=== PATIENT | male | born 1985 | race Caucasian/White ===

== ENCOUNTER 2017-06-13 12:17 | Emergency (ER) | payer OTHER ==
[~2017-06-13] VITALS: Ht 170.2 cm; Wt 83.9 kg
[2017-06-13] MEDS ORDERED: SODIUM CHLORIDE 0.9% 1,000 ML IV ONE ×2 (12:42)
[2017-06-13 13:15] LABS: Basophils # (auto) 0 uL; Basophils % (auto) 0.4 % (0.0-2.0); CONDITION Y; Eosinophils # (auto) 0.1 uL; Eosinophils % (auto) 0.7 % (0.0-7.0); Hemoglobin 15.8 g/dL (13.5-17.5); Lymphocytes # (auto) 3.9 uL; Lymphocytes % (auto) 34.5 % (10.0-50.0); Mean Corpuscular Hemoglobin 32.6 pg (28.0-32.0); Mean Corpuscular Hgb Conc. 35.2 g/dL (32.0-36.0); Mean Corpuscular Volume 92.5 fL (80.0-100.0); Mean Platelet Volume 9.6 fL (7.4-10.4); Monocytes # (auto) 0.4 uL; Monocytes % (auto) 3.8 % (0.0-12.0); Neutrophils # (auto) 6.9 uL; Neutrophils % (auto) 60.6 % (37.0-80.0); Platelet Count (auto) 263 10^3/uL (140-450); Red Cell Distribution Width 12.6 % (11.6-16.0); White Blood Cell 11.4 10^3/uL (4.4-10.8)
[2017-06-13 13:32] LABS: Albumin 4.3 g/dL (3.4-5.0); Anion Gap 18 (5-15); BUN/Creatinine Ratio 11.2; Blood Urea Nitrogen 11 mg/dL (7-18); Carbon Dioxide 18 mmol/L (21-32); Chloride 109 mmol/L (98-107); GFR African American 115 mL/min; GFR Non-African American 95 mL/min; Glucose 87 mg/dL (74-106); Salicylate 2.2 mg/dL (2.8-20.0); Sodium 145 mmol/L (136-145)
[2017-06-13 13:36] LABS: Alkaline Phosphatase 82 U/L (45-117); Bilirubin, Total 0.3 mg/dL (0.2-1.0); Total Protein 8.4 g/dL (6.4-8.2)
[2017-06-13 13:38] LABS: Aspartate Aminotransferase 30 U/L (15-37); Potassium 3.2 mmol/L (3.5-5.1)
[2017-06-13 13:45] LABS: Acetaminophen 42.1 ug/mL (10-30)
[2017-06-13 15:00] LABS: Urine Bilirubin Negative (Negative); Urine Blood Negative /uL (Negative); Urine Color Yellow (Yellow); Urine Glucose Normal (Normal); Urine Nitrite Negative (Negative); Urine RBC <1 /hpf (0 - 3); Urine Urobilinogen Normal (Negative)
[2017-06-13 16:22] LABS: Urine Ketone 1+ (Negative)
[2017-06-14 17:37] VITALS: BP 132/56
== END 2017-06-14 18:04 | disposition short-term general hospital (02) ==
LOC: ER 12:17 → EDBD 12:17 → EDUNIT# 12:17 → ER 06-14 18:04
DX: F10.129 Alcohol abuse with intoxication, unspecified (principal); E86.0 Dehydration; F41.9 Anxiety disorder, unspecified; F12.10 Cannabis abuse, uncomplicated; R45.851 Suicidal ideations
CPT/HCPCS: 36415; 71010; 80053; 80307; 80320; 80329; 81001; 84484; 85025; 93005; 96360; 96361; 99285; J7030